=== PATIENT | female | born 2000 | race Caucasian/White ===

== ENCOUNTER 2024-04-18 09:26 | Emergency (ER) | payer BC, MEDICAID ==
[2024-04-18 09:48] LABS: BASOPHILS ABSOLUTE AUTO 0.02 K/uL (0.00-0.20); BASOPHILS PERCENT AUTO 0.2 % (0.0-1.0); EOSINOPHILS ABSOLUTE AUTO 0.04 K/uL (0.00-0.45); EOSINOPHILS PERCENT AUTO 0.5 % (0.0-6.0); IMMATURE GRAN ABSOLUTE AUTO 0.04 K/uL (0.00-0.05); IMMATURE GRAN PERCENT AUTO 0.5 % (0.0-0.4); LYMPHOCYTES ABSOLUTE AUTO 1.78 K/uL (1.00-4.80); LYMPHOCYTES PERCENT AUTO 20.8 % (24.0-44.0); MEAN CORPUSCULAR HEMOGLOBIN 28.1 pg (28.0-32.0); MEAN CORPUSCULAR HGB CONC 33.3 g/dL (32.0-36.0); MEAN CORPUSCULAR VOLUME 84.2 fL (83.0-99.0); MEAN PLATELET VOLUME 10.9 fL (9.4-12.3); MONOCYTES ABSOLUTE AUTO 0.58 K/uL (0.00-0.80); MONOCYTES PERCENT AUTO 6.8 % (0.0-8.0); NEUTROPHILS PERCENT AUTO 71.2 % (41.0-71.0); PLATELET COUNT,PLT 200 K/uL (150-400); RED BLOOD CELL COUNT 3.92 M/uL (4.10-5.30); WHITE BLOOD CELL COUNT,WBC 8.56 K/uL (3.9-11.3)
[2024-04-18 10:09] LABS: INR < 0.93 (0.86-1.11); PTT,PARTIAL THROMBOPLSTIN TIME 24.8 SEC (23.9-30.7)
[2024-04-18 10:12] LABS: A/G RATIO 0.6 (0.9-1.6); ALBUMIN 2.2 g/dL (3.4-5.0); BILIRUBIN TOTAL 0.2 mg/dL (0.2-1.0); CALCIUM 8.5 mg/dL (8.5-10.1); CARBON DIOXIDE,CO2 24.2 mmol/L (21.0-32.0); CREATININE 0.6 mg/dL (0.6-1.0); EST CRCL DRUG DOSING (CG) 123.77 mL/min; PROTEIN TOTAL,TP 6.2 g/dL (6.4-8.2)
[2024-04-18] MEDS: Lidocaine 4% 1 each Patch TOP STA (10:19)
== END 2024-04-18 10:37 | disposition home or self-care (01) ==
LOC: MW.ED 09:26
DX: M79.662 Pain in left lower leg (principal); Z33.1 Pregnant state, incidental; Z79.899 Other long term (current) drug therapy
CPT/HCPCS: 36415; 80053; 85025; 85610; 85730; 93970; 99284; A9270

== ENCOUNTER 2024-05-07 11:35 | Inpatient (IN) | payer MEDICAID ==
[2024-05-07] MEDS ORDERED: Lidocaine 1% 50 ML MDV INJECT PRN (11:40)
[2024-05-07] MEDS ORDERED: Tranexamic Acid IN NACL,ISO-OS 1,000 MG in Premix Bag 1 BAG IV PRN (11:40)
[2024-05-07] MEDS ORDERED: Butorphanol 2 MG/ML SDV IVPUSH PRN (11:40)
[2024-05-07] MEDS ORDERED: Misoprostol 200 MCG Tab PO PRN (11:40)
[2024-05-07] MEDS ORDERED: Sodium Chloride 0.9% 20 ML SDV IV PRN (11:40)
[2024-05-07] MEDS ORDERED: Methylergonovine 0.2 MG/1 ML Amp IM PRN (11:40)
[2024-05-07] MEDS ORDERED: Sodium Chloride 0.9% 10 ML Syringe FLUSH PRN (11:40)
[2024-05-07] MEDS ORDERED: Water For Irrigation,Sterile 1,000 ML Container IRR PRN (11:40)
[2024-05-07] MEDS ORDERED: Carboprost Tromethamine 250 MCG/1 mL Vial IM PRN (11:40)
[2024-05-07] MEDS ORDERED: Sodium Chloride 0.9% 2.5 ML Syringe FLUSH PRN (11:40)
[2024-05-07] MEDS ORDERED: Ondansetron 4 MG/2 ML SDV IVPUSH PRN (11:40)
[2024-05-07] MEDS: Lactated Ringers 1,000 ML IV SCH (11:50)
[2024-05-07] MEDS: Ropivacaine HCl/PF 400 MG in Premix Bag 1 BAG EPIDUR SCH (12:04)
[2024-05-07] MEDS ORDERED: Ropivacaine HCl/PF 200 ML ONE (12:12)
[2024-05-07] MEDS ORDERED: Phenylephrine HCl In 0.9% NaCl 1 MG/10 ML Syringe IVPUSH PRN (12:18)
[2024-05-07] MEDS ORDERED: ePHEDrine 50 MG/ML SDV IVPUSH PRN ×2 (12:18)
[2024-05-07 12:21] LABS: HEMATOCRIT 35.1 % (37.0-47.0); HEMOGLOBIN 11.7 g/dL (12.0-16.0); MEAN CORPUSCULAR HEMOGLOBIN 27.4 pg (28.0-32.0); MEAN CORPUSCULAR HGB CONC 33.3 g/dL (32.0-36.0); MEAN CORPUSCULAR VOLUME 82.2 fL (83.0-99.0); MEAN PLATELET VOLUME 12.1 fL (9.4-12.3); PLATELET COUNT,PLT 229 K/uL (150-400); RED BLOOD CELL COUNT 4.27 M/uL (4.10-5.30); WHITE BLOOD CELL COUNT,WBC 11.33 K/uL (3.9-11.3)
[2024-05-07] MEDS: Oxytocin/0.9 % Sodium Chloride 30 UNIT/500 ML BAG IV SCH (12:26)
[2024-05-07] MEDS ORDERED: dexmedeTOMIDine HCl 200 MCG/2 ML SDV EPIDUR SCH (12:30)
[2024-05-07] MEDS ORDERED: Lanolin 100% Cream 7 GM Tube TOP PRN (12:51)
[2024-05-07] MEDS ORDERED: Docusate Sodium 100 MG Cap PO PRN (12:51)
[2024-05-07] MEDS ORDERED: Benzocaine/Menthol 20%-0.5% Spray 78 GM Cannister TOP PRN (12:51)
[2024-05-07] MEDS ORDERED: oxyCODONE 5 MG Tab PO PRN (12:51)
[2024-05-07] MEDS ORDERED: Acetaminophen 500 MG Tab PO PRN (12:51)
[2024-05-07] MEDS ORDERED: Witch Hazel Medicated Pads 40/Jar TOP PRN (12:51)
[2024-05-07 13:10] LABS: PH,UMBILICAL ARTERIAL 7.311 (7.18-7.38); PH,UMBILICAL VENOUS 7.346 (7.25-7.45)
[2024-05-07] MEDS: dexmedeTOMIDine HCl 200 MCG/2 ML SDV ONE (14:14)
[2024-05-07] MEDS: Phenylephrine HCl In 0.9% NaCl 1 MG/10 ML Syringe ONE (14:14)
[2024-05-07] MEDS: Ibuprofen 800 MG Tab PO PRN (20:20)
[2024-05-08 06:27] LABS: HEMATOCRIT 30.9 % (37.0-47.0); HEMOGLOBIN 9.9 g/dL (12.0-16.0)
== END 2024-05-08 15:09 | disposition home or self-care (01) | DRG 807 ==
LOC: MW.OBCHECK 11:35 → MW.OB 11:37 → MW.OBCHECK 11:41 → MW.OB 11:42 → OBSVTOIN 12:51 → MW.OB 17:04
PROVIDERS: ADMIT Obstetrics & Gynecology; ATTEND Obstetrics & Gynecology
PROC: 10E0XZZ Delivery of Products of Conception, External Approach (ICD-10-PCS; principal; 2024-05-07)
PROC: 3E0R3BZ Introduction of Anesthetic Agent into Spinal Canal, Percutaneous Approach (ICD-10-PCS; 2024-05-07)
PROC: 00HU33Z Insertion of Infusion Device into Spinal Canal, Percutaneous Approach (ICD-10-PCS; 2024-05-07)
PROC: 10907ZC Drainage of Amniotic Fluid, Therapeutic from Products of Conception, Via Natural or Artificial Opening (ICD-10-PCS; 2024-05-07)
DX: O69.81X0 Labor and delivery complicated by cord around neck, without compression, not applicable or unspecified (principal); Z37.0 Single live birth; Z3A.38 38 weeks gestation of pregnancy
CPT/HCPCS: 36415; 59025; 59409; 82803; 85014; 85018; 85027; 86592; 86850; 86900; 86901; A9270-GY; J2371; J2590; J2795; J3490; J7120

== ENCOUNTER 2025-08-01 12:15 | Emergency (ER) | payer MEDICAID ==
[2025-08-01] MEDS ORDERED: Sodium Chloride 0.9% 2.5 ML Syringe FLUSH PRN (12:31)
[2025-08-01] MEDS ORDERED: Sodium Chloride 0.9% 10 ML Syringe FLUSH PRN (12:31)
[2025-08-01] MEDS: Ketorolac 30 MG/ML SDV IVPUSH ONE (12:48)
[2025-08-01] MEDS: Dexamethasone Sod Phos Preservative Free 10 MG/ML Vial IVPUSH ONE (12:48)
[2025-08-01 13:03] LABS: BASOPHILS ABSOLUTE AUTO 0.03 K/uL (0.00-0.20); BASOPHILS PERCENT AUTO 0.3 % (0.0-1.0); EOSINOPHILS ABSOLUTE AUTO 0.03 K/uL (0.00-0.45); EOSINOPHILS PERCENT AUTO 0.3 % (0.0-6.0); IMMATURE GRAN ABSOLUTE AUTO 0.03 K/uL (0.00-0.05); IMMATURE GRAN PERCENT AUTO 0.3 % (0.0-0.4); LYMPHOCYTES ABSOLUTE AUTO 1.53 K/uL (1.00-4.80); LYMPHOCYTES PERCENT AUTO 14.2 % (24.0-44.0); MEAN PLATELET VOLUME 9.9 fL (9.4-12.3); MONOCYTES ABSOLUTE AUTO 0.91 K/uL (0.00-0.80); MONOCYTES PERCENT AUTO 8.4 % (0.0-8.0); NEUTROPHILS ABSOLUTE AUTO 8.24 K/uL (1.80-7.70); NEUTROPHILS PERCENT AUTO 76.5 % (41.0-71.0); NRBC ABSOLUTE 0.00 K/uL (0.00-0.02); NRBC PERCENT 0.0 /100WBC (0.0-0.2); PLATELET COUNT,PLT 249 K/uL (150-400); RED BLOOD CELL COUNT 4.77 M/uL (4.10-5.30); WHITE BLOOD CELL COUNT,WBC 10.77 K/uL (3.9-11.3)
[2025-08-01 13:19] LABS: A/G RATIO 0.8 (0.9-1.6); ALANINE AMINOTRANSFERASE,ALT 47.0 IU/L (14-63); ASPARTATE AMNIOTRANSFERASE,AST 34.0 IU/L (15-37); BILIRUBIN TOTAL 0.4 mg/dL (0.2-1.0); BLOOD UREA NITROGEN,BUN 9.0 mg/dL (7.0-18.0); CARBON DIOXIDE,CO2 25.0 mmol/L (21.0-32.0); CHLORIDE,CL 102.0 mmol/L (98-107); CREATININE 0.7 mg/dL (0.6-1.0); EST CRCL DRUG DOSING (CG) 95.48 mL/min; GLUCOSE RANDOM 99.0 mg/dL (74-106); POTASSIUM,K 3.6 mmol/L (3.5-5.1); PROTEIN TOTAL,TP 7.6 g/dL (6.4-8.2); SODIUM,NA 139.0 mmol/L (136-145)
[2025-08-01 13:21] LABS: ESTIMATED GFR 121.0 mL/min (>60)
[2025-08-01] MEDS: cefTRIAXone 1 GM in Water For Injection, Sterile 10 ML IVPUSH ONE (13:25)
== END 2025-08-01 14:54 | disposition home or self-care (01) ==
LOC: MW.ED 12:15
DX: J18.9 Pneumonia, unspecified organism (principal); E86.0 Dehydration
CPT/HCPCS: 36415; 71046; 80053; 83735; 85025; 87428; 87651; 96361; 96374; 96375; 99283; J0696; J1100; J1885; J7030